=== PATIENT | female | born 1975 | race Caucasian/White ===

== ENCOUNTER 2017-03-02 16:38 | Emergency (ER) | payer BC, OTHER ==
[~2017-03-02] VITALS: Ht 162.6 cm; Wt 75.0 kg
[~2017-03-02 16:38] MED LIST: ALBU8I INH; AMIT50 PO; BUPR-197 PO; CYCL-36 PO; HYDR-3534 PO; PANT40IN3 PO; TOPA50TA6 PO
[2017-03-02 16:40] VITALS: BP 165/86; PULSE 72; RESP 15; TEMP 98.2; O2SAT 99
[2017-03-02] MEDS ORDERED: SODIUM CHLOR 0.9% 1000 ML INJ 1,000 ML IV ONE (17:21)
--- NOTE | 2017-03-02 17:26 | PD ---
HPI Chief Complaint: Headache Time Seen by Provider: 17:21 Travel History International Travel<30 days: No Contact w/Intl Traveler<30days: No Traveled to known affect area: No History of Present Illness HPI 41-year-old female with history of migraine headaches, presents to the ER today sent in by Dr. Reilly, her primary care physician, currently complaining of headaches that started yesterday, nausea, vomiting, photophobia, and is having intermittent blurriness and darkness in her vision that is coming and going. She states it lasts a few seconds at a time. She denies any fevers, neck stiffness, abdominal pain, or other symptoms. She had been given Phenergan by her physician without significant improvement. Modifying Factors: None Associated Signs & Symptoms: Worsening headaches, nausea and vomiting Risk Factors: History of migraine headaches PFSH Past Medical History Asthma: Yes Depression: Yes Diminished Hearing: No GERD: Yes Genitourinary: Yes (UTI) Musculoskeletal: Yes (L5-L3 RUPTURED) Respiratory: Yes (Asthma ) Immunizations Current: No Migraines: Yes ?: Not LMP: 02/27/17 : 5 Para: 4 Miscarriage: 1 Tubal Ligation: Yes Past Surgical History Gynecologic Surgery: Yes Social History Alcohol Use: Yes (OCC) Tobacco Use: No Substance Use: No Allergies-Medications (Allergen,Severity, Reaction): Coded Allergies: Benadryl (Unverified Allergy, Severe, Itching, 01/01/16) Demerol (Unverified Allergy, Severe, Anaphylaxis, 01/01/16) Erythromycin (Unverified Allergy, Severe, Anaphylaxis, 01/01/16) Penicillin (Unverified Allergy, Severe, Hives, 01/01/16) Reported Meds & Prescriptions Reported Meds & Active Scripts Active Reported Lortab 7.5 mg/325 mg (Hydrocodone/Acetaminophen 7.5 mg/325 mg) 1 Tab 1 Tab PO Q6HR PRN Elavil 50 Mg Tab (Amitriptyline HCl) 50 Mg Tab 50 Mg PO HS Pantoprazole Sodium 40 Mg Tab 40 Mg PO BID Flexeril (Cyclobenzaprine HCl) 10 Mg Tab 10 Mg PO TID PRN Topamax (Topiramate) 50 Mg Tab 50 Mg PO DAILY Wellbutrin (Bupropion HCl) 100 Mg Tab 100 Mg PO BID Ventolin Hfa (Albuterol Sulfate) 8 Gm Aero 2 Puff INH DAILY * SHAKE WELL BEFORE USE * Review of Systems Except as stated in HPI: all other systems reviewed are Neg Physical Exam Narrative GENERAL: Well-developed middle age white female patient currently in moderate distress. Awake and oriented 3. SKIN: Focused skin assessment warm/dry. HEAD: Atraumatic. Normocephalic. EYES: Pupils equal and round. No scleral icterus. No injection or drainage. ENT: No nasal bleeding or discharge. Mucous membranes pink and moist. NECK: Trachea midline. No JVD. CARDIOVASCULAR: Regular rate and rhythm. No murmur appreciated. RESPIRATORY: No accessory muscle use. Clear to auscultation. Breath sounds equal bilaterally. GASTROINTESTINAL: Abdomen soft, non-tender, nondistended. Hepatic and splenic margins not palpable. MUSCULOSKELETAL: No obvious deformities. No clubbing. No cyanosis. No edema. NEUROLOGICAL: Awake and alert. No obvious cranial nerve deficits. Motor grossly within normal limits. Normal speech. PSYCHIATRIC: Appropriate mood and affect; insight and judgment normal. Data Data Last Documented VS Vital Signs Date Time Temp Pulse Resp B/P Pulse Ox O2 Delivery O2 Flow Rate FiO2 03/02/17 17:30 98 Room Air 03/02/17 17:30 20 03/02/17 16:40 98.2 72 165/86 Orders Complete Blood Count With Diff (03/02/17 17:21) Comprehensive Metabolic Panel (03/02/17 17:21) Westergren Sedimentation Rate (03/02/17 17:21) C-Reactive Protein (Crp) (03/02/17 17:21) Ct Brain W/O Iv Contrast(Rout) (03/02/17 17:21) Ecg Monitoring (03/02/17 17:21) Iv Access Insert/Monitor (03/02/17 17:21) Oximetry (03/02/17 17:21) Sodium Chloride 0.9% Flush (Ns Flush) (03/02/17 17:30) Ondansetron Inj (Zofran Inj) (03/02/17 17:30) Hydromorphone Pf Inj (Dilaudid Pf Inj) (03/02/17 17:30) Sodium Chlor 0.9% 1000 Ml Inj (Ns 1000 M (03/02/17 17:21) Ed Urine Pregnancytest Poc (03/02/17 17:21) Urinalysis - C+S If Indicated (03/02/17 17:21) Urine Culture (03/02/17 17:25) Labs Laboratory Tests Test 03/02/17 03/02/17 17:20 17:25 White Blood Count 6.2 TH/MM3 Red Blood Count 4.70 MIL/MM3 Hemoglobin 12.0 GM/DL Hematocrit 36.7 % Mean Corpuscular Volume 78.2 FL Mean Corpuscular Hemoglobin 25.6 PG Mean Corpuscular Hemoglobin 32.7 % Concent Red Cell Distribution Width 17.5 % Platelet Count 347 TH/MM3 Mean Platelet Volume 8.6 FL Neutrophils (%) (Auto) 71.7 % Lymphocytes (%) (Auto) 18.0 % Monocytes (%) (Auto) 6.4 % Eosinophils (%) (Auto) 3.2 % Basophils (%) (Auto) 0.7 % Neutrophils # (Auto) 4.4 TH/MM3 Lymphocytes # (Auto) 1.1 TH/MM3 Monocytes # (Auto) 0.4 TH/MM3 Eosinophils # (Auto) 0.2 TH/MM3 Basophils # (Auto) 0.0 TH/MM3 CBC Comment DIFF FINAL Differential Comment Erythrocyte Sedimentation Rate 12 mm/hr Sodium Level 140 MEQ/L Potassium Level 4.3 MEQ/L Chloride Level 106 MEQ/L Carbon Dioxide Level 29.3 MEQ/L Anion Gap 5 MEQ/L Blood Urea Nitrogen 15 MG/DL Creatinine 0.75 MG/DL Estimat Glomerular Filtration 85 ML/MIN Rate Random Glucose 122 MG/DL Calcium Level 8.6 MG/DL Total Bilirubin 0.3 MG/DL Aspartate Amino Transf 34 U/L (AST/SGOT) Alanine Aminotransferase 45 U/L (ALT/SGPT) Alkaline Phosphatase 66 U/L C-Reactive Protein LESS THAN 0.29 MG/DL Total Protein 7.7 GM/DL Albumin 3.9 GM/DL Urine Color YELLOW Urine Turbidity HAZY Urine pH 7.0 Urine Specific [place] 1.022 Urine Protein TRACE mg/dL Urine Glucose (UA) NEG mg/dL Urine Ketones NEG mg/dL Urine Occult Blood NEG Urine Nitrite POS Urine Bilirubin NEG Urine Urobilinogen LESS THAN 2.0 MG/DL Urine Leukocyte Esterase MOD Urine RBC 1 /hpf Urine WBC 13 /hpf Urine Squamous Epithelial 1 /hpf Cells Urine Amorphous Sediment RARE Urine Bacteria MOD /hpf Microscopic Urinalysis Comment CULTURE INDICATED MDM Medical Decision Making Medical Screen Exam Complete: Yes Emergency Medical Condition: Yes Medical Record Reviewed: Yes Interpretation(s) Laboratory Tests Test 03/02/17 03/02/17 17:20 17:25 Mean Corpuscular Volume 78.2 FL (80.0-100.0) Mean Corpuscular Hemoglobin 25.6 PG (27.0-34.0) Red Cell Distribution Width 17.5 % (11.6-17.2) Neutrophils (%) (Auto) 71.7 % (16.0-70.0) Estimat Glomerular Filtration 85 ML/MIN (>89) Rate Random Glucose 122 MG/DL (74-106) Urine Turbidity HAZY (CLEAR) Urine Nitrite POS (NEG) Urine Leukocyte Esterase MOD (NEG) Urine WBC 13 /hpf (0-5) Urine Bacteria MOD /hpf (NONE) Differential Diagnosis Headaches, nausea and vomiting, vision changesmigraine headaches versus dehydration versus sepsis versus hypertensive urgency acute intracranial processes Narrative Course Lab work did not show significant leukocytosis or sedimentation rate elevations. She does have a UTI which I suspect could be contributing to some of the symptoms. My plan would be to give her antibiotics to treat her UTI. CT has been ordered to rule out other acute processes. Physician Communication Physician Communication Case is signed out to Dr. Adams at [address] Diagnosis Primary Impression: Headache Additional Impression: UTI (urinary tract infection) Med/Other Pt SpecificInfo: Prescription(s) given Scripts Sulfamethoxazole-Trimethoprim (Bactrim DS)800-160 Mg Tab1 Tab PO BID #14 TAB Ref 0 Prov:Sandee Parker MD 03/02/17 Condition: Stable Sandee Parker MD Mar 02, 2017 17:26
[2017-03-02 17:30] VITALS: RESP 20; O2SAT 98
[2017-03-02] MEDS ORDERED: SODIUM CHLORIDE 0.9% FLUSH 10 ML FLUSH IVF PRN (17:30)
[2017-03-02] MEDS ORDERED: ONDANSETRON HCL 4 MG/2 ML VIAL IVP ONE (17:30)
[2017-03-02] MEDS ORDERED: HYDROmorphone HCL PF 1 MG/ML VIAL IVS ONE (17:30)
[2017-03-02 17:45] LABS: AUTOMATED NEUTROPHIL # 4.4 TH/MM3 (1.8-7.7); BASOPHIL % 0.7 % (0.0-2.0); EOSINOPHIL # 0.2 TH/MM3 (0-0.4); EOSINOPHIL % 3.2 % (0.0-4.0); HEMATOCRIT 36.7 % (35.0-46.0); HEMO FLAGS DIFF FINAL; LYMPHOCYTE # 1.1 TH/MM3 (1.0-4.8); MEAN CELL VOLUME 78.2 FL (80.0-100.0); MEAN CORPUSCULAR HEMOGLOBIN 25.6 PG (27.0-34.0); MEAN CORPUSCULAR HGB CONC 32.7 % (32.0-36.0); MONO % 6.4 % (0.0-8.0); NEUT % 71.7 % (16.0-70.0); PLATELET COUNT 347 TH/MM3 (150-450); RED CELL DISTRIBUTION WIDTH 17.5 % (11.6-17.2); WHITE BLOOD COUNT 6.2 TH/MM3 (4.0-11.0)
[2017-03-02 17:53] LABS: BACTERIA, URINE MOD /hpf; BLOOD, URINE NEG (NEG); GLUCOSE,URINE NEG (NEG); KETONE, URINE NEG (NEG); SQUAMOUS EPITHELIAL CELL URINE 1 /hpf (0-5); URINE COLOR YELLOW (YELLW/STRAW)
[2017-03-02 17:54] LABS: NITRITE,URINE POS (NEG)
[2017-03-02 17:55] LABS: COMMENT (UR) CULTURE INDICATED; CULTURE IF INDICATED CULTURE INDICATED
[2017-03-02 18:10] LABS: ALT (GPT) 45 U/L (10-53)
[2017-03-02 18:11] LABS: ANION GAP 5 MEQ/L (5-15); AST (GOT) 34 U/L (15-37); BICARBONATE 29.3 MEQ/L (21.0-32.0); BLOOD UREA NITROGEN 15 MG/DL (7-18); CHLORIDE 106 MEQ/L (98-107); GLOMERULAR FILTRATION RATE 85 ML/MIN (>89); POTASSIUM 4.3 MEQ/L (3.5-5.1); SODIUM (NA) 140 MEQ/L (136-145)
[2017-03-02 18:12] LABS: ALKALINE PHOSPHATASE 66 U/L (45-117); TOTAL BILIRUBIN ADULT 0.3 MG/DL (0.2-1.0)
[2017-03-02] MEDS ORDERED: BACT800T5 PO (19:14)
--- NOTE | 2017-03-02 19:23 | RADRPT ---
EXAM DATE/TIME: 03/02/2017 18:53 [facility] COMPARISON: No previous studies available for comparison. INDICATIONS : Patient complains of migrane with vomitting . RADIATION DOSE: 36.02 CTDIvol (mGy) MEDICAL HISTORY : None SURGICAL HISTORY : Tubal ligation. ENCOUNTER: Initial ACUITY: 1 day PAIN SCALE: 8/10 LOCATION: cranial TECHNIQUE: Multiple contiguous axial images were obtained of the head. Using automated exposure control and adj ustment of the mA and/or kV according to patient size, radiation dose was kept as low as reasonably a chievable to obtain optimal diagnostic quality images. FINDINGS: CEREBRUM: The ventricles are normal for age. No evidence of midline shift, mass lesion, hemorrhage or acute in farction. No extra-axial fluid collections are seen. POSTERIOR FOSSA: The cerebellum and brainstem are intact. The 4th ventricle is midline. The cerebellopontine angle i s unremarkable. EXTRACRANIAL: The visualized portion of the orbits is intact. SKULL: The calvaria is intact. No evidence of skull fracture. CONCLUSION: 1. No acute intracranial abnormality. 2. Left ethmoid sinus disease. Dmitry Kim MD on March 02, 2017 at 19:20 Board Certified Radiologist. This report was verified electronically.
[2017-03-02 19:30] VITALS: BP 149/77; PULSE 96; RESP 16; O2SAT 99
[2017-03-02] MEDS ORDERED: PROCHLORPERAZINE INJ 10 MG/2 ML VIAL IV PUSH ONE (19:45)
--- NOTE | 2017-03-02 19:45 | PD ---
Physical Exam Narrative Received sign out from previous team to follow up CT brain and reevaluate. 41yo F with history of migraine headaches here with left sided headache that feels like her migraines. States her migraines come in clusters and is associated with nausea, photophobia. Denies any fever. CT brain showed no acute intracranial abnormality. Left ethmoid sinus disease. Pt given NS IVF, zofran and dilaudid 1mg IV which helped with the headache. However, states headache is returning. Pt is no longer nauseous. Will give compazine 10mg IV. Pt reevaluated at bedside after compazine and states her headache has resolved. Pt feels better and wants to go home. Impression is migraine headache. UA also showed positive nitrite and pt was prescribed Bactrim by previous team. Return precautions given. Data Data Last Documented VS Vital Signs Date Time Temp Pulse Resp B/P Pulse Ox O2 Delivery O2 Flow Rate FiO2 03/02/17 20:05 85 16 132/82 99 03/02/17 17:30 Room Air 03/02/17 16:40 98.2 Orders Complete Blood Count With Diff (03/02/17 17:21) Comprehensive Metabolic Panel (03/02/17 17:21) Westergren Sedimentation Rate (03/02/17 17:21) C-Reactive Protein (Crp) (03/02/17 17:21) Ct Brain W/O Iv Contrast(Rout) (03/02/17 17:21) Ecg Monitoring (03/02/17 17:21) Iv Access Insert/Monitor (03/02/17 17:21) Oximetry (03/02/17 17:21) Sodium Chloride 0.9% Flush (Ns Flush) (03/02/17 17:30) Ondansetron Inj (Zofran Inj) (03/02/17 17:30) Hydromorphone Pf Inj (Dilaudid Pf Inj) (03/02/17 17:30) Sodium Chlor 0.9% 1000 Ml Inj (Ns 1000 M (03/02/17 17:21) Ed Urine Pregnancytest Poc (03/02/17 17:21) Urinalysis - C+S If Indicated (03/02/17 17:21) Urine Culture (03/02/17 17:25) Prochlorperazine Inj (Compazine Inj) (03/02/17 19:45) Labs Laboratory Tests Test 03/02/17 03/02/17 17:20 17:25 White Blood Count 6.2 TH/MM3 Red Blood Count 4.70 MIL/MM3 Hemoglobin 12.0 GM/DL Hematocrit 36.7 % Mean Corpuscular Volume 78.2 FL Mean Corpuscular Hemoglobin 25.6 PG Mean Corpuscular Hemoglobin 32.7 % Concent Red Cell Distribution Width 17.5 % Platelet Count 347 TH/MM3 Mean Platelet Volume 8.6 FL Neutrophils (%) (Auto) 71.7 % Lymphocytes (%) (Auto) 18.0 % Monocytes (%) (Auto) 6.4 % Eosinophils (%) (Auto) 3.2 % Basophils (%) (Auto) 0.7 % Neutrophils # (Auto) 4.4 TH/MM3 Lymphocytes # (Auto) 1.1 TH/MM3 Monocytes # (Auto) 0.4 TH/MM3 Eosinophils # (Auto) 0.2 TH/MM3 Basophils # (Auto) 0.0 TH/MM3 CBC Comment DIFF FINAL Differential Comment Erythrocyte Sedimentation Rate 12 mm/hr Sodium Level 140 MEQ/L Potassium Level 4.3 MEQ/L Chloride Level 106 MEQ/L Carbon Dioxide Level 29.3 MEQ/L Anion Gap 5 MEQ/L Blood Urea Nitrogen 15 MG/DL Creatinine 0.75 MG/DL Estimat Glomerular Filtration 85 ML/MIN Rate Random Glucose 122 MG/DL Calcium Level 8.6 MG/DL Total Bilirubin 0.3 MG/DL Aspartate Amino Transf 34 U/L (AST/SGOT) Alanine Aminotransferase 45 U/L (ALT/SGPT) Alkaline Phosphatase 66 U/L C-Reactive Protein LESS THAN 0.29 MG/DL Total Protein 7.7 GM/DL Albumin 3.9 GM/DL Urine Color YELLOW Urine Turbidity HAZY Urine pH 7.0 Urine Specific [place] 1.022 Urine Protein TRACE mg/dL Urine Glucose (UA) NEG mg/dL Urine Ketones NEG mg/dL Urine Occult Blood NEG Urine Nitrite POS Urine Bilirubin NEG Urine Urobilinogen LESS THAN 2.0 MG/DL Urine Leukocyte Esterase MOD Urine RBC 1 /hpf Urine WBC 13 /hpf Urine Squamous Epithelial 1 /hpf Cells Urine Amorphous Sediment RARE Urine Bacteria MOD /hpf Microscopic Urinalysis Comment CULTURE INDICATED MDM Supervised Visit with [facility]: No Diagnosis Primary Impression: Headache Qualified Code: R51 - Nonintractable episodic headache, unspecified headache type Additional Impression: UTI (urinary tract infection) Qualified Code: N39.0 - Urinary tract infection without hematuria, site unspecified Additional Instruction: Please follow up with your neurologist in 1-2 days. Return to the ED if symptoms worsen. Med/Other Pt SpecificInfo: Prescription(s) given Scripts Acetaminophen (Tylenol)325 Mg [id number] Mg PO Q6H PRN (PAIN SCALE 1 TO 4) #20 TAB Ref 0 Prov:Jasmyne Adams DO 03/02/17 Sulfamethoxazole-Trimethoprim (Bactrim DS)800-160 Mg Tab1 Tab PO BID #14 TAB Ref 0 Prov:Sandee Parker MD 03/02/17 Disposition: 01 DISCHARGE HOME Condition: Stable Jasmyne Adams DO Mar 02, 2017 19:45
[2017-03-02 20:05] VITALS: BP 132/82; PULSE 85; RESP 16; O2SAT 99
[2017-03-02] MEDS ORDERED: TYLE325T PO (21:24)
== END 2017-03-02 22:36 | disposition home or self-care (01) ==
LOC: NEPC 16:38
DX: G43.909 Migraine, unspecified, not intractable, without status migrainosus (principal); N39.0 Urinary tract infection, site not specified; B96.20 Unspecified Escherichia coli [E. coli] as the cause of diseases classified elsewhere; Z87.09 Personal history of other diseases of the respiratory system; Z86.59 Personal history of other mental and behavioral disorders; Z87.19 Personal history of other diseases of the digestive system; Z87.440 Personal history of urinary (tract) infections; Z87.39 Personal history of other diseases of the musculoskeletal system and connective tissue; Z86.69 Personal history of other diseases of the nervous system and sense organs
CPT/HCPCS: 70450; 80053; 81001; 84703; 85025; 85652; 86140; 87077; 87086; 87186; 96361; 96374; 96375; 99285; J0780; J1170; J2405; J7030